=== PATIENT | female | born 1975 | race Caucasian/White ===

== ENCOUNTER 2018-02-14 10:17 | Day surgery (SDC) | payer OTHER ==
[2018-02-14] MEDS: LACTATED RINGER'S 1,000 ML IV* (11:24)
[2018-02-14 11:26] LABS: ADD MAN DIFF? NO
[2018-02-14 11:30] LABS: WHITE BLOOD COUNT 9.3 10^3/ul (4.8-10.8)
[2018-02-14 11:30] LABS: BASOPHILS % 0.3 % (0.0-2.0); EOSINOPHILS # 0.1 10^3/ul (0.0-0.5); EOSINOPHILS % 0.9 % (0.0-7.0); HEMOGLOBIN 7.3 g/dl (12.0-16.0); LYMPHOCYTES # 2.9 10^3/ul (0.8-2.9); LYMPHOCYTES % 31.1 % (15.0-51.0); MEAN CORPUSCULAR HEMOGLOBIN 20.4 pg (29.0-33.0); MEAN CORPUSCULAR HGB CONC 29.2 g/dl (32.0-37.0); MEAN PLATELET VOLUME 9.9 fl (7.4-10.4); MONOCYTE # 0.6 10^3/ul (0.3-0.9); MONOCYTES % 6.4 % (0.0-11.0); NEUTROPHIL # 5.7 10^3/ul (1.6-7.5); NEUTROPHILS % 60.9 % (39.0-77.0); PLATELET COUNT 444 10^3/UL (140-415); RED BLOOD COUNT 3.57 10^6/ul (4.20-5.40); RED CELL DISTRIBUTION WIDTH 16.5 % (11.5-14.5)
[2018-02-14] MEDS ORDERED: FENTAnyl 50 MCG/ML VIAL IV ×2 (11:30)
[2018-02-14] MEDS ORDERED: OXYCODONE/ACETAMINOPHEN (5/325) TAB PO ×2 (11:30)
[2018-02-14] MEDS ORDERED: METOCLOPRAMIDE 10 MG INJ IV (11:30)
[2018-02-14 11:32] LABS: HOLD TRANSMISSIONS 1
[2018-02-14] MEDS ORDERED: MIDAZOLAM 1 MG/ML 2 ML INJ (11:33)
[2018-02-14] MEDS ORDERED: FENTAnyl 50 MCG/ML VIAL ×2 (11:33→13:26)
[2018-02-14] MEDS ORDERED: LIDOCAINE 2% (SDV) 5 ML INJ (11:34)
[2018-02-14] MEDS ORDERED: PROPOFOL 20 ML (11:34)
[2018-02-14 11:44] LABS: ADD UMIC YES; UR ASCORBIC ACID NEGATIVE (NEGATIVE); UR BACTERIA FEW /HPF (NONE SEEN); UR BILIRUBIN (Dip) NEGATIVE (NEGATIVE); UR BLOOD (Dip) 2+ mg/dL (NEGATIVE); UR CLARITY TURBID (CLEAR); UR COLOR AMBER (YELLOW); UR GLUCOSE (Dip) NEGATIVE (NEGATIVE); UR KETONES (Dip) TRACE mg/dL (NEGATIVE); UR LEUKOCYTE ESTERASE (Dip) TRACE Leu/ul (NEGATIVE); UR MUCUS MANY /HPF (NONE SEEN); UR NITRITE (Dip) NEGATIVE (NEGATIVE); UR RBC 10 /HPF (0-5); UR SPECIFIC GRAVITY (Dip) 1.029 (1.003-1.030); UR SQUAMOUS EPITHELIAL CELL MODERATE /HPF (FEW); UR TOTAL PROTEIN (Dip) 1+ mg/dl (NEGATIVE); UR UROBILINOGEN (Dip) 1+ mg/dL (NEGATIVE); UR WBC 11 /HPF (0-5)
[2018-02-14 11:50] LABS: INR 0.93; PROTIME 12.5 Sec (11.9-14.9)
[2018-02-14 11:51] LABS: PARTIAL THROMBOPLASTIN TIME 28.6 Sec (25.0-35.0)
[2018-02-14 11:54] LABS: ALANINE AMINOTRANSFERASE 16 IU/L (13-69); ALBUMIN 4.2 g/dl (3.3-4.9); ALBUMIN/GLOBULIN RATIO 1.23; ALKALINE PHOSPHATASE 90 IU/L (42-121); ANION GAP 12 (8-16); ASPARTATE AMINO TRANSFERASE 20 IU/L (15-46); BILIRUBIN,INDIRECT 0.3 mg/dl (0-1.1); BILIRUBIN,TOTAL 0.3 mg/dl (0.2-1.3); BLOOD UREA NITROGEN 12 mg/dl (7-20); CALCIUM 8.9 mg/dl (8.4-10.2); CARBON DIOXIDE 23 mmol/L (21-31); CHLORIDE 110 mmol/L (97-110); CREATININE 0.61 mg/dl (0.44-1.00); GLUCOSE 92 mg/dl (70-220); POTASSIUM 3.7 mmol/L (3.5-5.1); SODIUM 141 mmol/L (135-144); TOTAL PROTEIN 7.6 g/dl (6.1-8.1)
[2018-02-14] MEDS ORDERED: FAMOTIDINE 20 MG INJ (13:15)
[2018-02-14] MEDS ORDERED: DEXAMETHASONE 4 MG/ML 1 ML INJ (13:15)
[2018-02-14] MEDS ORDERED: METOCLOPRAMIDE 10 MG INJ (13:15)
[2018-02-14] MEDS ORDERED: LACTATED RINGER'S 1,000 ML IV (14:10)
[2018-02-14] MEDS: FENTAnyl 50 MCG/ML VIAL IV (14:29)
[2018-02-14] MEDS ORDERED: ONDANSETRON 4 MG INJ IV (14:30)
[2018-02-14] MEDS ORDERED: IBUPROFEN 600 MG TAB PO (14:30)
[2018-02-14] MEDS ORDERED: ACETAMINOPHEN 325 MG TAB PO (14:30)
[2018-02-14] MEDS: ONDANSETRON 4 MG INJ IV (14:45)
[2018-02-14] MEDS: KETOROLAC 30 MG INJ IV (14:52)
== END 2018-02-14 16:05 | disposition home or self-care (01) ==
LOC: SDS 10:17
DX: N93.9 Abnormal uterine and vaginal bleeding, unspecified (principal); D25.0 Submucous leiomyoma of uterus
CPT/HCPCS: 58558; 80053; 81001; 84703; 85025; 85610; 85730; 86850; 86900; 86901; 88305